=== PATIENT | male | born 1960 | race Caucasian/White ===

== ENCOUNTER → 2021-06-01 15:26 | Outpatient (CLI) | payer BC, SELFPAY ==
--- NOTE | ~2021-06-01 | MR_ITS ---
EXAMINATION: MR lumbar spine wo con DATE: 06/01/2021 16:41 INDICATION: Lumbar radiculopathy. TECHNIQUE: Magnetic resonance imaging (MRI) of the lumbar spine was performed without intravenous con trast. Sequences included sagittal T2-weighted FSE, sagittal T2-weighted FS FSE, sagittal T1-weighted FSE, and axial T2-weighted FSE. COMPARISON: Lumbar spine MRI 06/20/2018 FINDINGS: There is 11 degrees levoscoliosis of lumbar spine. There is 3 mm retrolisthesis of L2 on L3 and 3 mm anterolisthesis of L4 on L5. Vertebral body heights are normal. There is moderately decreas ed disc height at L2-L3 and mildly decreased disc height at L4-L5 with endplate remodeling. The dista l spinal cord signal intensity is normal. The conus medullaris is at L1. The following disc levels ar e specifically discussed: L1-L2: The disc is bulging. There is moderate bilateral facet joint osteoarthritis. There is mild lef t neural foraminal stenosis. There is mild central canal stenosis. L2-L3: The disc is bulging and has an annular fissure. There is mild bilateral facet joint osteoarthr itis. There is moderate right and mild left neural foraminal stenosis. There is mild central canal st enosis. L3-L4: The disc is bulging. There is moderate bilateral facet joint osteoarthritis. There is mild myron ateral neural foraminal stenosis. There is no central canal stenosis. L4-L5: The disc is bulging with superimposed left central extrusion. There is severe bilateral facet joint osteoarthritis. There is mild bilateral neural foraminal stenosis. There is mild central canal stenosis. L5-S1: The disc is bulging and has an annular fissure. There is severe bilateral facet joint osteoart hritis. There is mild bilateral neural foraminal stenosis. There is mild central canal stenosis. IMPRESSION: 1. Moderate lumbar spondylosis, worsened from 06/20/2018. 2. Lumbar levoscoliosis. Reviewed, dictated and finalized at location A.
== END ==
PROVIDERS: PCP Internal Medicine; Visit Provider Nurse Practitioner Family
DX: M47.26 Other spondylosis with radiculopathy, lumbar region (principal)
CPT/HCPCS: 72148

== ENCOUNTER → 2021-07-03 08:42 | Outpatient (CLI) | payer BC, SELFPAY ==
--- NOTE | ~2021-07-03 | US_ITS ---
EXAMINATION: US retroperitoneal comp DATE: 07/03/2021 09:03 INDICATION: Chronic kidney disease stage III. TECHNIQUE: Multiple ultrasound grayscale images of the kidneys were obtained. COMPARISON: None. FINDINGS: The right kidney measures 10.1 x 7.0 x 6.2 cm. The left kidney measures 11.9 x 6.7 x 5.4 cm. The kidn eys demonstrate normal parenchymal echogenicity. There is no hydronephrosis. The bladder is normal. IMPRESSION: 1. Normal kidneys. No hydronephrosis. Reviewed, dictated and finalized at location A.
== END ==
PROVIDERS: Visit Provider Specialist
DX: N18.31 Chronic kidney disease, stage 3a (principal)
CPT/HCPCS: 76770

== ENCOUNTER → 2021-07-28 08:52 | Outpatient (CLI) | payer BC, SELFPAY ==
--- NOTE | ~2021-07-28 | XR_ITS ---
XR knee LT 2V DATE: 07/28/2021 09:04 INDICATION: Bilateral knee pain TECHNIQUE: Standing AP and lateral views COMPARISON: None FINDINGS: Mild to moderate suprapatellar knee joint effusion is suggested. There is tricompartment osteoarthritis, most severe at the medial and patellofemoral compartments wit h prominent joint space loss at each of these compartments. There is prominent periarticular spurring at all 3 compartments. No fracture or dislocation, periosteal reaction or bone destruction, radiopaque intra-articular loos e body or chondrocalcinosis is evident. IMPRESSION: Tricompartment osteoarthritis Mild to moderate suprapatellar knee joint effusion Reviewed, dictated and finalized at location B.
--- NOTE | ~2021-07-28 | XR_ITS ---
XR knee RT 2V DATE: 07/28/2021 09:04 INDICATION: Bilateral knee pain TECHNIQUE: Standing AP and lateral views of right knee COMPARISON: None FINDINGS: There is tricompartment osteoarthritis, most pronounced at the medial compartment with paula re loss of medial joint space. There is periarticular spurring at all 3 compartments. No fracture, dislocation, periosteal reaction or bone destruction, radiopaque intra-articular loose b linda or chondrocalcinosis. Small suprapatellar knee joint effusion is suggested. IMPRESSION: Tricompartment osteoarthritis, most pronounced at the medial compartment Possible small suprapatellar knee joint effusion Reviewed, dictated and finalized at location B. IMPRESSION: Tricompartment osteoarthritis, most pronounced at the medial compar tment Possible small suprapatellar knee joint effusion
== END ==
PROVIDERS: PCP Internal Medicine; Visit Provider Nurse Practitioner Family
DX: M17.0 Bilateral primary osteoarthritis of knee (principal); M25.461 Effusion, right knee; M25.462 Effusion, left knee
CPT/HCPCS: 73560

== ENCOUNTER → 2021-08-24 08:31 | Outpatient (CLI) | payer BC, SELFPAY ==
--- NOTE | ~2021-08-24 | XR_ITS ---
EXAMINATION: XR hip RT min 2V DATE: 08/24/2021 09:12 INDICATION: Right hip pain. TECHNIQUE: 2 views of right hip were obtained. COMPARISON: None. FINDINGS: Bone alignment is normal. No fracture. There is mild right hip osteoarthritis. IMPRESSION: 1. Mild right hip osteoarthritis. Reviewed, dictated and finalized at location A.
== END ==
PROVIDERS: PCP Internal Medicine; Visit Provider Nurse Practitioner Family
DX: M16.11 Unilateral primary osteoarthritis, right hip (principal)
CPT/HCPCS: 73502

== ENCOUNTER 2024-03-18 01:11 | Day surgery (SDC) | payer BC, SELFPAY ==
[2024-02-29 13:26] VITALS: BMI 47.7
[2024-03-18 08:42] VITALS: BP 146/65; PULSE 97; RESP 18; TEMP 36.1; O2SAT 97
[2024-03-18] MEDS: LACTATED RINGERS 1,000 ML 150 ML IV CONT (08:54)
[2024-03-18 08:59] LABS: Glucose Point of Care 126 mg/dl (65-105)
--- NOTE | 2024-03-18 09:09 | P.PNAN_ITS ---
Anes - Initial Pre Proc Eval Procedure: Operation Date: 03/18/24 10:00 Proposed Procedures p Screening Colonoscopy - Ray Brenner MD Date/Time: 03/18/24 09:09 Surgeon: Ray Brenner MD Pre Op Diagnosis: hx of colon polyps Patient Data Age: 64 Gender: M Height: 1.85 m Weight: 163.1 kg Last Vital Signs Temp 97 F L 03/18/24 08:42 Pulse 97 03/18/24 08:42 Resp 18 03/18/24 08:42 BP 146/65 H 03/18/24 08:42 Pulse Ox 97 03/18/24 08:42 O2 Del Method Room Air 03/18/24 08:42 Allergies Allergy/AdvReac Type Severity Reaction Status Date / Time No Known Allergies Allergy Verified 03/18/24 08:41 Home Medications Medication Instructions Recorded Confirmed Type brimonidine 0.2 % eye drops 1 drp EACH EYE DAILY 02/29/24 02/29/24 History calcitriol 0.25 mcg capsule 0.25 mcg PO DAILY 02/29/24 02/29/24 History empagliflozin 10 mg tablet 10 mg PO DAILY 02/29/24 02/29/24 History (Jardiance) ergocalciferol (vitamin D2) 1,250 50,000 unit PO 02/29/24 History mcg (50,000 unit) capsule furosemide 40 mg tablet 40 mg PO PRN PRN swelling 02/29/24 02/29/24 History gabapentin 100 mg capsule 100 mg PO TID 02/29/24 02/29/24 History glipizide 10 mg tablet 5 mg PO DAILY 02/29/24 02/29/24 History insulin degludec 200 unit/mL (3 20 unit subcut DAILY 02/29/24 02/29/24 History mL) subcutaneous pen (Tresiba FlexTouch U-200 insulin) losartan 100 mg tablet 100 mg PO DAILY 02/29/24 02/29/24 History rosuvastatin 20 mg tablet 20 mg PO DAILY 02/29/24 02/29/24 History testosterone See Rx Instructions .Route .COMPLEX 02/29/24 02/29/24 History tirzepatide 2.5 mg/0.5 mL 2.5 mg subcut WEEKLY 05/02/24 05/02/24 History subcutaneous pen injector (Mounjaro) Laboratory Tests 03/18/24 08:53 POC Capillary Glucose 126 H mg/dl (65-105) Patient hx anesthesia problems: none Family hx anesthesia problems: none Results Review: All pre-operative results and documents have been reviewed as part of the pre- operative evaluation. [facility] Social History Social History Smoking status: Never smoker Substance use type: does not use Living arrangements: other Additional living arrangements comments: with lenny Drew Final PreProcedure Day of Procedure 03/18/24 09:09 Patient weight: morbidly obese Heart: regular rate and rhythm Lungs: clear to auscultation Airway: Mallampati scale class II Neurological: alert and oriented Last oral intake: >/= 8 hours ASA classification: III Emergent: no Anesthetic plan: proceed Anesthesia type and monitoring: general GIVS and standard monitoring Results Review: All pre-operative results and documents have been reviewed as part of the pre- operative evaluation. Informed Consent: The patient's anesthetic plan and its attendant risks and benefits were discussed with the patient/family/POA. Questions were solicited and answers provided to the satisfaction of the patient/family/POA.
--- NOTE | 2024-03-18 09:39 | PM.HPGS ---
History of Present Illness History of Present Illness Consent: Risks, benefits, and alternatives have been discussed and questions answered. Patient agrees to proceed with procedure. Chief complaint: hx of colon polyps Narrative: Reza Ny is a 64 year old male with colon polyp in 2019 Review of Systems Review of Systems: All systems reviewed & are unremarkable except as noted in HPI and below PMFSH Past Medical History Medical History (Updated 03/18/24 @ 09:39 by Ray Brenner MD) Adenomatous colon polyp Social History Social History Smoking status: Never smoker Substance use type: does not use Living arrangements: other Additional living arrangements comments: with sp Meds Home Medications and Allergies Home Medications Medication Instructions Recorded Confirmed Type brimonidine 0.2 % eye drops 1 drp EACH EYE DAILY 02/29/24 02/29/24 History calcitriol 0.25 mcg capsule 0.25 mcg PO DAILY 02/29/24 02/29/24 History empagliflozin 10 mg tablet 10 mg PO DAILY 02/29/24 02/29/24 History (Jardiance) ergocalciferol (vitamin D2) 1,250 50,000 unit PO 02/29/24 History mcg (50,000 unit) capsule furosemide 40 mg tablet 40 mg PO PRN PRN swelling 02/29/24 02/29/24 History gabapentin 100 mg capsule 100 mg PO TID 02/29/24 02/29/24 History glipizide 10 mg tablet 5 mg PO DAILY 02/29/24 02/29/24 History insulin degludec 200 unit/mL (3 20 unit subcut DAILY 02/29/24 02/29/24 History mL) subcutaneous pen (Tresiba FlexTouch U-200 insulin) losartan 100 mg tablet 100 mg PO DAILY 02/29/24 02/29/24 History rosuvastatin 20 mg tablet 20 mg PO DAILY 02/29/24 02/29/24 History testosterone See Rx Instructions .Route .COMPLEX 02/29/24 02/29/24 History tirzepatide 2.5 mg/0.5 mL 2.5 mg subcut WEEKLY 02/29/24 02/29/24 History subcutaneous pen injector (Cesarunmarlaro) Allergies Allergy/AdvReac Type Severity Reaction Status Date / Time No Known Allergies Allergy Verified 03/18/24 08:41 Vital Signs Vital Signs - 24 hr 05/20/24 08:42 Temperature 97 F L Pulse Rate 97 Respiratory Rate 18 Blood Pressure 146/65 H Pulse Oximetry 97 Oxygen Delivery Room Air Exam Const: General: comfortable and no acute distress HENMT: Face/Nose/Sinus: Normal nares present Eyes: General: appearance normal, both eyes and all related structures Neck: Neck: no JVD Resp: Auscultation: clear to auscultation bilaterally Cardio: Rate: regular rate Rhythm: regular rhythm GI: Inspection: non-distended GI Palp: Yes Soft to palpation Skin: General skin exam: normal color Neuro: General: gait normal Speech: normal speech Extrem: General: normal to inspection Psych: Mental Status: mental status grossly normal Assessment and Plan Assessment and plan (1) Adenomatous colon polyp: Code(s): D12.6 - Benign neoplasm of colon, unspecified Status: Acute Assessment and Plan: colonoscopy
[2024-03-18 09:55] VITALS: BP 112/55; PULSE 81; RESP 21; O2SAT 96
[2024-03-18 10:04] LABS: Glucose Point of Care 109 mg/dl (65-105)
[2024-03-18 10:05] VITALS: BP 123/67; PULSE 80; RESP 16; O2SAT 100
[2024-03-18 10:15] VITALS: BP 124/71; PULSE 83; RESP 16; O2SAT 100
== END 2024-03-18 10:30 | disposition home or self-care (01) ==
PROVIDERS: PCP Internal Medicine; Visit Provider Internal Medicine Gastroenterology
PROC: 0DJD8ZZ Inspection of Lower Intestinal Tract, Via Natural or Artificial Opening Endoscopic (ICD-10-PCS; CPT 45378; principal; 2024-03-18 10:00)
DX: Z12.11 Encounter for screening for malignant neoplasm of colon (principal); D12.4 Benign neoplasm of descending colon; K64.8 Other hemorrhoids; E66.01 Morbid (severe) obesity due to excess calories; Z68.42 Body mass index [BMI] 45.0-49.9, adult; Z79.84 Long term (current) use of oral hypoglycemic drugs; Z79.4 Long term (current) use of insulin; Z79.85 Long-term (current) use of injectable non-insulin antidiabetic drugs
CPT/HCPCS: 45385; 82948; 88305; J2704; J7120

== ENCOUNTER 2025-07-07 13:02 | Outpatient (CLI) | payer BC, SELFPAY ==
--- OUTSIDE RECORDS SUMMARY | 2010-09-17 10:00 | XMS_ITS | Continuity of Care Document ---
Author Organization [facility] Address [address] [place] [address] Phone Care Team Providers Care Security Assistant Name Role Phone Messi Franklin Unavailable Unavailable Procedures Procedure Date Post-op Follow-up Visit Eye Exam & Treatment Ophthalmoscopy, Subsequent Ophthalmoscopy, Subsequent Optic Nerve Topography Optic Nerve Topography Post-op Follow-up Visit Remove Cataract, Insert Lens Injection Eye Drug Kenalog/Triamcinolone Acetonide Inj Eye Exam & Treatment Injection Eye Drug Kenalog/Triamcinolone Acetonide Inj Ophthalmoscopy, Subsequent Ophthalmoscopy, Subsequent Optic Nerve Topography Optic Nerve Topography Office/outpatient Visit, Est Echo Exam Of Eye-Professional Oct--201 0 Eye Exam & Treatment Ophthalmoscopy, Subsequent Ophthalmoscopy, Subsequent Optic Nerve Topography Optic Nerve Topography Eye Exam & Treatment Ophthalmoscopy, Subsequent Ophthalmoscopy, Subsequent Optic Nerve Topography Optic Nerve Topography Injection Eye Drug Kenalog/Triamcinolone Acetonide Inj Eye Exam & Treatment Ophthalmoscopy, Subsequent Ophthalmoscopy, Subsequent Optic Nerve Topography Optic Nerve Topography Injection Eye Drug Kenalog/Triamcinolone Acetonide Inj Post-op Follow-up Visit Eye Exam & Treatment Ophthalmoscopy, Subsequent Ophthalmoscopy, Subsequent Optic Nerve Topography Optic Nerve Topography Injection Eye Drug Kenalog/Triamcinolone Acetonide Inj Post-op Follow-up Visit Post-op Follow-up Visit Remove Cataract, Insert Lens Injection Eye Drug Kenalog/Triamcinolone Acetonide Inj Echo Exam Of Eye Office/outpatient Visit, Est Eye Exam & Treatment Ophthalmoscopy, Subsequent Ophthalmoscopy, Subsequent Optic Nerve Topography Optic Nerve Topography Injection Eye Drug Kenalog/Triamcinolone Acetonide Inj Ophthalmoscopy, Subsequent Eye Exam & Treatment Ophthalmoscopy, Subsequent Ophthalmoscopy, Subsequent Optic Nerve Topography Optic Nerve Topography Injection Eye Drug Kenalog/Triamcinolone Acetonide Inj Eye Exam & Treatment Ophthalmoscopy, Subsequent Ophthalmoscopy, Subsequent Optic Nerve Topography Optic Nerve Topography Eye Exam & Treatment Ophthalmoscopy, Subsequent Ophthalmoscopy, Subsequent Optic Nerve Topography Injection Eye Drug Kenalog/Triamcinolone Acetonide Inj Eye Exam Established Pt Ophthalmoscopy, Subsequent Eye Exam & Treatment Ophthalmoscopy, Subsequent Eye Exam & Treatment Ophthalmoscopy, Subsequent Ophthalmoscopy, Subsequent Optic Nerve Topography Optic Nerve Topography Injection Eye Drug Kenalog/Triamcinolone Acetonide Inj Eye Exam & Treatment Ophthalmoscopy, Subsequent Ophthalmoscopy, Subsequent Optic Nerve Topography Optic Nerve Topography Injection Eye Drug Kenalog/Triamcinolone Acetonide Inj Eye Exam & Treatment Injection Eye Drug Kenalog/Triamcinolone Acetonide Inj Ophthalmoscopy, Subsequent Ophthalmoscopy, Subsequent Optic Nerve Topography Optic Nerve Topography Eye Exam Established Pt Ophthalmoscopy, Subsequent Ophthalmoscopy, Subsequent Eye Exam Established Pt Ophthalmoscopy, Subsequent Ophthalmoscopy, Subsequent Eye Exam & Treatment Ophthalmoscopy, Subsequent Ophthalmoscopy, Subsequent Optic Nerve Topography Optic Nerve Topography Injection Eye Drug Bevacizumab (Avastin) Eye Exam & Treatment Ophthalmoscopy, Subsequent Ophthalmoscopy, Subsequent Injection Eye Drug Kenalog/Triamcinolone Acetonide Inj Miscellaneous Vision Service - Supplies Sales Tax Progressive Lens, Plastic Frames Deluxe UV Coat Tax - Medical Eye Exam Established Pt Ophthalmoscopy, Subsequent Ophthalmoscopy, Subsequent Optic Nerve Topography Optic Nerve Topography No Charge Glasses Check Eye Exam Established Pt Ophthalmoscopy, Subsequent Ophthalmoscopy, Subsequent Treatment Of Retinal Lesion Treatment Of Retinal Lesion Injection Eye Drug Kenalog/Triamcinolone Acetonide Inj Office Consultation Ophthalmoscopy Ophthalmoscopy Fluorescein Angiography Fluorescein Angiography Injection Eye Drug Kenalog/Triamcinolone Acetonide Inj Eye Exam, New Patient Advance Directives Directive Yes / No Effective Date File Name No Information Encounters Encounter Description Practice Location Reason(s) For Visit Diagnoses Date Provider Providers Copied on Encounter [facility], [address] [place] [address] [address], [place], [place], [address], tel:[phone] [facility] No Information 0 Rigoberto Swenson. [address] [facility] , [address], [place], [place], [facility], . tel:[phone] Referring Provider: Gabriele Harmon, [address] [place] [address], [facility]. tel:[phone] [facility], [address] [place] [address] [address], [place], [place], [address], tel:[phone] SEC [facility] No Information 0 Kenneth Suazo. [address] [place] [address], [address], [place]. tel:[phone] Referring Provider: Gabriele Harmon, [address] [place], [facility]. tel:[phone] [facility], [address] [place] [address] [address], [place], [place], [address], tel:[phone] SEC [facility] No Information 0 Rigoberto Swenson. [address] [facility] , [address], [place], [facility], [place]. tel:[phone] Referring Provider: Gabriele Harmon, [address] [place] [facility]. tel:[phone] [facility], [address], [place], [place], [address], [place] tel:[phone] [facility] No Information Nov-0 4-201 0 Rigoberto Swenson. [address] [facility] , [address], [place], [address], [place]. tel:[phone] Referring Provider: Gabriele Harmon, [address] [place] [facility]. tel:[phone] [facility], [address] [place] [address] [address], [place], [place], [address], [place] tel:[phone] [facility] No Information Oct-2 8-201 0 Kenneth Suazo. [address] [place] [address], [facility], [place]. tel:[phone] Referring Provider: Messi De Los Santos, Abigail [facility] [address], [place], [facility]. tel:[phone] [facility], [address], [place], [place], [address], [place] tel:[phone] [facility] No Information Oct-2 1-201 0 Kenneth Suazo. [address] [place], [address], [place]. tel:[phone] Referring Provider: Gabriele Harmon, [address] [place], [address]. tel:[phone] Office/outpati ent Visit, [facility], [address], [place], [place], [address], [place] tel:[phone] [facility] No Information Oct-1 1-201 0 [facility]enson. [facility] , [address], [place], [facility], [place]. tel:[phone] Referring Provider: Abigail Sanchez [facility] [address], [place], [facility]. tel:[phone] [facility], [address], [place], [place], [address], [place] tel:[phone] [facility] No Information 0 Kenneth Suazo. [address] [place], [address], [place]. tel:[phone] Referring Provider: Gabriele Harmon, [address] [place], [address]. tel:[phone] [facility], [address], [place], [place], [address], [place] tel:[phone] [facility] No Information 0 Kenneth Suazo. [address] [place], [address], [place]. tel:[phone] Referring Provider: Gabriele Harmon, [address] [place], [address]. tel:[phone] [facility], [address], [place], [place], [address], [place] tel:[phone] SEC [facility] No Information 0 Kenneth Suazo. [address] [place], [address], [place]. tel:[phone] Referring Provider: Gabriele Harmon, [address] [place], [address]. tel:[phone] [facility], [address], [place], [place], [address], [place] tel:[phone] [facility] No Information 0 Kenneth Suazo. [address] [place], [address], [place]. tel:[phone] [facility], [address], [place], [place], [address], [place] tel:[phone] [facility] [place] No Information 0 [place]. [address], [place], [address], [place]. tel:[phone] [facility], [address], [place], [place], [address], [place] tel:[phone] [facility] No Information 0 Kenneth Suazo. [address] [place], [address], [place]. tel:[phone] Referring Provider: Gabriele Harmon, [address] [place] [facility]. tel:[phone] [facility], [address] [place] [address] [address], [place], [place], [address], [place] tel:[phone] [facility] No Information 0 [place]. [address] [facility] [address], [address], [place]. tel:[phone] Referring Provider: Gabriele Harmon, [address] [place] [address], [address]. tel:[phone] [facility], [address] [place] [address] [address], [place], [place], [address], [place] tel:[phone] [facility] No Information 0 [place]. [address] [facility] [address], [address], [place]. tel:[phone] Referring Provider: Gabriele Harmon, [address] [place], [address]. tel:[phone] [facility], [address], [place], [place], [address], [place] tel:[phone] [facility] No Information - 0 [place]. [address], [place], [address], [place]. tel:[phone] Referring Provider: Gabriele Harmon, [address] [place], [address]. tel:[phone] [facility], [address], [place], [place], [address], [place] tel:[phone] [facility] No Information Ernesto-1 4-201 0 Kenneth Suazo. [address] [place], [address], [place]. tel:[phone] Referring Provider: Parish medel, [address] [place], [place] [address]ate [place] [address], [place], [address]. tel:[phone] [facility], [address], [place], [place], [address], [place] tel:[phone] SEC [facility] No Information Ernesto-0 2-201 0 [place]. [address] [place], [place] [address], [address], [place]. tel:[phone] Referring Provider: Parish medel, [address] [place], [place] [address]ate [place] [address], [place], [address]. tel:[phone] Office/outpati ent Visit, [facility], [address], [place], [place], [address], [place] tel:[phone] SEC [facility] No Information Ernesto-0 1-201 0 [place]. [facility] [address], [place], [address], [place]. tel:[phone] Referring Provider: Gabriele Harmon, [address] [place], [address]. tel:[phone] [facility], [address], [place], [place], [address], [place] tel:[phone] [facility] No Information May-2 4-201 0 Kenneth Suazo. [address] [place], [address], [place]. tel:[phone] Referring Provider: Gabriele Harmon, [address] [place], [address]. tel:[phone] [facility], [address], [place], [place], [address], [place] tel:[phone] [facility] No Information May-1 0-201 0 Kenneth Suazo. [address] [place], [address], [place]. tel:[phone] Referring Provider: Gabriele Harmon, [address] [place], [address]. tel:[phone] [facility], [address], [place], [place], [address], [place] tel:[phone] [facility] No Information Apr-2 6-201 0 Kenneth Suazo. [address] [place], [address], [place]. tel:[phone] Referring Provider: Gabriele Harmon, [address] [place], [address]. tel:[phone] [facility], [address], [place], [place], [address], [place] tel:[phone] [facility] No Information Mar-2 9-201 0 Kenneth Suazo. [address] [place], [address], [place]. tel:[phone] Referring Provider: Gabriele Harmon, [address] [place], [address]. tel:[phone] [facility], [address], [place], [place], [address], [place] tel:[phone] [facility] No Information Mar-1 1-201 0 Kenneth Suazo. [address] [place], [address], [place]. tel:[phone] Referring Provider: Gabriele Harmon, [address] [place], [address]. tel:[phone] [facility], [address], [place], [place], [address], [place] tel:[phone] [facility] No Information 0 Kenneth Suazo. [address] [place], [address], [place]. tel:[phone] [facility], [address], [place], [place], [address], [place] tel:[phone] [facility] No Information 0 Kenneth Suazo. [address] [place], [address], [place]. tel:[phone] Referring Provider: Gabriele Harmon, [address] [place], [address]. tel:[phone] [facility], [address], [place], [place], [address], [place] tel:[phone] [facility] No Information 0 Kenneth Suazo. [address] [place], [address], [place]. tel:[phone] Referring Provider: Gabriele Harmon, [address] [place], [address]. tel:[phone] [facility], [address], [place], [place], [address], [place] tel:[phone] [facility] No Information 0 Kenneth Suazo. [address] [place], [address], [place]. tel:[phone] Referring Provider: Gabriele Harmon, [address] [place], [address]. tel:[phone] [facility], [address], [place], [place], [address], [place] tel:[phone] [facility] No Information Dec-1 0-200 9 Kenneth Gabriele. [address] [place], [address], [place]. tel:[phone] Referring Provider: Gabriele Harmon, [address] [place], [address]. tel:[phone] [facility], [address], [place], [place], [address], [place] tel:[phone] [facility] No Information Dec-0 3-200 9 Kenneth Suazo. [address] [place], [address], [place]. tel:[phone] Referring Provider: Gabriele Harmon, [address] [place], [address]. tel:[phone] [facility], [address], [place], [place], [address], [place] tel:[phone] [facility] No Information Oct-1 5-200 9 Kenneth Suazo. [address] [place], [address], [place]. tel:[phone] Referring Provider: Gabriele Harmon, [address] [place], [address]. tel:[phone] [facility], [address], [place], [place], [address], [place] tel:[phone] [facility] No Information Aug-0 6-200 9 Kenneth Suazo. [address] [place], [address], [place]. tel:[phone] Referring Provider: Gabriele Harmon, [address] [place], [address]. tel:[phone] [facility], [address], [place], [place], [address], [place] tel:[phone] [facility] No Information Apr-0 9-200 9 Kenneth Suazo. [address] [place], [address], [place]. tel:[phone] Referring Provider: Gabriele Harmon, [address] [place], [address]. tel:[phone] [facility], [address], [place], [place], [address], [place] tel:[phone] [facility] No Information Mar-2 5-200 9 Kenneth Suazo. [address] [place], [address], [place]. tel:[phone] Referring Provider: Gabriele Harmon, [address] [place], [address]. tel:[phone] [facility], [address], [place], [place], [address], [place] tel:[phone] [facility] No Information Mar-1 1200 9 Kenneth Suazo. [address] [place], [address], [place]. tel:[phone] [facility], [address], [place], [place], [address], [place] tel:[phone] SEC [facility] No Information Mar-0 2-200 9 [facility]. [address] [facility], [address], [place], [place], [address], [place]. tel:[phone] Referring Provider: Parish medel, [address] [place] [address] [address], [place], [address]. tel:[phone] sulting Provider: Hector Muse, [address] [place] [address], [address]. tel:[phone] [facility], [address], [place], [place], [address], [place] tel:[phone] [facility] [place] No Information Dec-1 3-200 9 [employer] [facility]. [address] [facility], [address], [place], [place], [address], [place]. tel:[phone] Referring Provider: Favio De Los Santos, [facility] [address], [place], [address]. tel:[phone] sulting Provider: Hector Muse, [facility], [place], [address]. tel:[phone] [facility], [address], [place], [place], [address], [place] tel:[phone] [facility] No Information Corey-0 8-200 9 Kenneth Suazo. [address] [place], [address], [place]. tel:[phone] Referring Provider: Gabriele Harmon, [address] [place], [address]. tel:[phone] [facility], [address], [place], [place], [address], [place] tel:[phone] [facility] [place] No Information Dec-1 7-200 8 Lewis OD Favio. [address] [place], [place] [address], [place], [address], [place]. tel:[phone] [facility], [address], [place], [place], [address], [place] tel:[phone] [facility] No Information Nov-2 0-200 8 Kenneth Suazo. [address] [place], [address], [place]. tel:[phone] [facility], [address], [place], [place], [address], [place] tel:[phone] [facility] No Information Nov-1 0-200 8 Kenneth Suazo. [address] [place] [facility], . tel:[phone] [facility], [address] [place] [address] [address], [place], [place], [address], tel:[phone] [facility] No Information Nov-0 3-200 8 Kenneth Suazo. [address] [place] [facility], [place]. tel:[phone] [facility], [address] [place] [address] [address], [place], [place], [address], tel:[phone] [facility] No Information Oct-2 7-200 8 Kenneth Suazo. [address] [place] [facility], [place]. tel:[phone] Office Consultation [facility], [address] [place] [address] [address], [place], [place], [address], [place] tel:[phone] [facility] No Information Oct-2 3-200 8 Kenneth Suazo. [address] [place] [facility], [place]. tel:[phone] Referring Provider: Parish medel, [address] [place], [place] [address] [place] [address], [place], [facility]. tel:[phone] [facility], [address] [place] [address] [address], [place], [place], [address], [place] tel:[phone] [facility] No Information Oct-1 7-200 8 Zachery Lugo. [facility] [place] [address], [place], [facility], [place]. tel:[phone] Family History Family Member Type Diagnosis Age At Onset No Information Payers Payer name Insurance type Covered green party ID Authoriza tion(s) No Information Social History Type Description Quantity Date Captured Comments Sex Male Smoking Status No Information Chief Complaint And Reason For Visit No Information Reason For Referral Reason For Referral No Information History Of Present Illness Encounter Date Complaint History Of Prese nt Illness No Information Functional Status Date Functional Assessmen t No Information Instructions Date Instruction Additional Infor mation No Information Assessments Type Assessment Date No Information Patient Care Teams Name Effective Dates (start - stop) Status Members No Information
--- OUTSIDE RECORDS SUMMARY | 2024-03-22 07:15 | XMS_ITS ---
Author Organization [facility] Office Address [address] [facility] [address] [facility] [address] [place] [address] Care Team Providers Care Cut Off Man Name Role Phone Jorge A Guevara Unavailable [phone] Medications Medication SIG (Take, Route, Frequency, Duration) Notes Start Date End Date Status Ergocalciferol 1.25 MG (48979 UT) 1 capsule Orally Once a week; Duration: 90 day(s) Active Losartan Potassium 100 MG 1 tablet Orall y Once a day; Duration: 90 10/06/2023 Active Losartan Potassium 50 MG TAKE 1 TABLET B Y MOUTH EVERY DAY; Duration: 90 Active Encounters Encounter Location Date Provider Diagnosis [place] [facility] [address] [facility] [address] [place] [address] 03/22/2024 Jorge A Guevara Chronic kidney disea se, stage 2 (mild) N18.2 ; Essential (primary) hypertension I10 ; Type 2 diabetes mellitus with hyperglycemia E11.65 ; Renal osteodystrophy N25.0 and Secondary hyperparathyroidism, not elsewhere classified E21.1 Assessments Encounter Date Diagnosis (ICD Code) Assessment Notes Treatment Notes Treatment Clinical Notes Section Notes 03/22/2024 Chronic kidney disease, stage 2 (mild) (ICD-10 - N18.2) 03/22/2024 Essential (primary) hypertension (ICD-10 - I10) 03/22/2024 Type 2 diabetes mellitus with hyperglycemia (ICD-10 - E11.65) 03/22/2024 Renal osteodystrophy (ICD-10 - N25.0) 03/22/2024 Secondary hyperparathyroidism , not elsewhere classified (ICD-10 - E21.1) Plan Of Treatment Next Appt Details Provider Name:Jorge A Guevara , 07/25/2025 12:30:00 PM, 20[address] [facility], [facility] [address], [place], [address], Progress Notes * AIRAM SUNDOB: 2 (65 yo M)Acc No.[id number]:03/22/2024 Progress Notes Patient: AIRAM GREEN Provider: Ana Maria SO MD, Zenaida.Filiberto.C.P, F.A.S.N. :1960 A ge:64 Y S ex:Male Date:03/22/2024 Address:[address] [place] [address] Subjective: * Chief Complaints: * * Medical History: * Medications: T aking Losartan Potassium 100 MG Tablet 1 tablet Orally Once a day , Taking Losartan Potassium 50 MG Tablet TAKE 1 TABLET BY MOUTH EVERY DAY , Taking Ergocalciferol 1.25 MG (46881 UT) Capsule 1 capsule Orally Once a week Objective: * Vitals: Assessment: * Assessment: 1. C hronic kidney disease, stage 2 (mild) - N18.2 (Primary) 2 . E ssential (primary) hypertension - I10 3 . T ype 2 diabetes mellitus with hyperglycemia - E11.65 4 . R enal osteodystrophy - N25.0 5 . S econdary hyperparathyroidism, not elsewhere classified - E21.1 Plan: * Treatment: * Billing Information: * Visit Code: 54810 Office Visit, Est Pt., Level 4. * Procedure Codes: * Electronic signature of Delma Guevara MD on 07/07/2025 at 01:09 PM CDT Sign off status: Pending * Provider: Ana Maria SO MD, F.A.C.P, F.A.S.N. Date: 0 03/22/2024 Generated for Printing/Faxing/eTransmitting on: 0 07/07/2025 01:09 PM CDT
--- OUTSIDE RECORDS SUMMARY | 2024-07-12 07:15 | XMS_ITS ---
Author Organization [facility] Office Address [address] [place] [address] Care Team Providers Care Christmas Bell Ringer Name Role Phone Jorge A Guevara Unavailable [phone] Medications Medication SIG (Take, Route, Frequency, Duration) Notes Start Date End Date Status Losartan Potassium 50 MG TAKE 1 TABLET B Y MOUTH EVERY DAY; Duration: 90 Active Ergocalciferol 1.25 MG (79016 UT) 1 capsule Orally Once a week; Duration: 90 day(s) Active Losartan Potassium 100 MG TAKE 1 TABLET BY MOUTH EVERY DAY; Duration: 90 Active Encounters Encounter Location Date Provider Diagnosis [place] [facility] [address] [facility] 15 [place] [address] 07/12/2024 Jorge A Guevara Chronic kidney disea se, stage 2 (mild) N18.2 ; Essential (primary) hypertension I10 ; Type 2 diabetes mellitus with hyperglycemia E11.65 ; Renal osteodystrophy N25.0 and Secondary hyperparathyroidism, not elsewhere classified E21.1 Assessments Encounter Date Diagnosis (ICD Code) Assessment Notes Treatment Notes Treatment Clinical Notes Section Notes 07/12/2024 Chronic kidney disease, stage 2 (mild) (ICD-10 - N18.2) 07/12/2024 Essential (primary) hypertension (ICD-10 - I10) 07/12/2024 Type 2 diabetes mellitus with hyperglycemia (ICD-10 - E11.65) 07/12/2024 Renal osteodystrophy (ICD-10 - N25.0) 07/12/2024 Secondary hyperparathyroidism , not elsewhere classified (ICD-10 - E21.1) Plan Of Treatment Next Appt Details Provider Name:Jorge A Guevara , 07/25/2025 12:30:00 PM, [address] [facility] 15, [place], [address], Progress Notes * CHRISTINE SUNB: 2 (65 yo M)Acc No.[id number]:07/12/2024 Progress Notes Patient: AIRAM GREEN Provider: Ana Maria SO MD, F.Filiberto.C.P, F.A.S.N. :1960 A ge:64 Y S ex:Male Date:07/12/2024 Address:[address] [place] [address] Subjective: * Chief Complaints: * * Medical History: * Medications: T aking Losartan Potassium 50 MG Tablet TAKE 1 TABLET BY MOUTH EVERY DAY , Taking Ergocalciferol 1.25 MG (90988 UT) Capsule 1 capsule Orally Once a week , Taking Losartan Potassium 100 MG Tablet TAKE 1 TABLET BY MOUTH EVERY DAY Objective: * Vitals: Assessment: * Assessment: 1. C hronic kidney disease, stage 2 (mild) - N18.2 (Primary) 2 . E ssential (primary) hypertension - I10 3 . T ype 2 diabetes mellitus with hyperglycemia - E11.65 4 . R enal osteodystrophy - N25.0 5 . S econdary hyperparathyroidism, not elsewhere classified - E21.1 Plan: * Treatment: * Billing Information: * Visit Code: 11482 Office Visit, Est Pt., Level 4. * Procedure Codes: * Electronic signature of Delma Guevara MD on 07/07/2025 at 01:10 PM CDT Sign off status: Pending * Provider: Ana Maria SO MD, F.A.C.P, F.A.S.N. Date: 07/12/2024 Generated for Printing/Faxing/eTransmitting on: 07/07/2025 01:10 PM CDT
--- OUTSIDE RECORDS SUMMARY | 2024-10-04 07:15 | XMS_ITS ---
Author Organization [facility] Office Address [address] [facility] 61 [facility] [address] [place] [address] Care Team Providers Care Relay Engineer Name Role Phone Jorge A Guevara Unavailable [phone] Medications Medication SIG (Take, Route, Frequency, Duration) Notes Start Date End Date Status Losartan Potassium 50 MG TAKE 1 TABLET B Y MOUTH EVERY DAY; Duration: 90 Active Losartan Potassium 100 MG TAKE 1 TABLET BY MOUTH EVERY DAY; Duration: 90 Active Ergocalciferol 1.25 MG (00570 UT) 1 capsule Orally Once a week; Duration: 90 day(s) Active Encounters Encounter Location Date Provider Diagnosis [place] [facility] 2043 [facility] 15 [place] [address] 10/04/2024 Jorge A Guevara Chronic kidney disea se, stage 3 unspecified N18.30 ; Essential (primary) hypertension I10 ; Type 2 diabetes mellitus with hyperglycemia E11.65 ; Renal osteodystrophy N25.0 and Secondary hyperparathyroidism, not elsewhere classified E21.1 Assessments Encounter Date Diagnosis (ICD Code) Assessment Notes Treatment Notes Treatment Clinical Notes Section Notes 10/04/2024 Chronic kidney disease, stage 3 unspecified (ICD-10 - N18.30) 10/04/2024 Essential (primary) hypertension (ICD-10 - I10) 10/04/2024 Type 2 diabetes mellitus with hyperglycemia (ICD-10 - E11.65) 10/04/2024 Renal osteodystrophy (ICD-10 - N25.0) 10/04/2024 Secondary hyperparathyroidism , not elsewhere classified (ICD-10 - E21.1) Plan Of Treatment Next Appt Details Provider Name:Jorge A Guevara , 07/25/2025 12:30:00 PM, [address]43 [facility], [facility] [address], [place], [address], Progress Notes * JOCELYN SUN: 2 (65 yo M)Acc No.[id number]:10/04/2024 Progress Notes Patient: AIRAM GREEN Provider: Ana Maria SO MD, Zenaida.Filiberto.C.P, F.A.S.N. :1960 A ge:64 Y S ex:Male Date:10/04/2024 Address:[address] [place] [address] Subjective: * Chief Complaints: * * Medical History: * Medications: T aking Losartan Potassium 50 MG Tablet TAKE 1 TABLET BY MOUTH EVERY DAY , Taking Ergocalciferol 1.25 MG (25390 UT) Capsule 1 capsule Orally Once a week , Taking Losartan Potassium 100 MG Tablet TAKE 1 TABLET BY MOUTH EVERY DAY Objective: * Vitals: Assessment: * Assessment: 1. C hronic kidney disease, stage 3 unspecified - N18.30 2 . E ssential (primary) hypertension - I10 3 . T ype 2 diabetes mellitus with hyperglycemia - E11.65 4 . R enal osteodystrophy - N25.0 5 . S econdary hyperparathyroidism, not elsewhere classified - E21.1 Plan: * Treatment: * Billing Information: * Visit Code: 26455 Office Visit, Est Pt., Level 4. * Procedure Codes: * Electronic signature of Delma Guevara MD on 07/07/2025 at 01:10 PM CDT Sign off status: Pending * Provider: Ana Maria SO MD, F.Filiberto.C.P, F.A.S.N. Date: 12/05/2023 Generated for Printing/Faxing/eTransmitting on: 0 07/07/2025 01:10 PM CDT
--- OUTSIDE RECORDS SUMMARY | 2025-01-03 07:15 | XMS_ITS ---
Author Organization [facility] Office Address 1400 [facility] 61 [facility] [address] [place] [address] Care Team Providers Care Separator Operator Name Role Phone Jorge A Guevara Unavailable [phone] Problems Problem Type SNOMED Code ICD Code Onset Dates Problem Status W/U Status Risk Notes Problem Information temporarily unavailable Secondary hyperparathyroidism of renal origin (N25.81) Active confirmed Problem Information temporarily unavailable Glycosuria (R81) Active confirmed Encounters Encounter Location Date Provider Diagnosis [place] [facility] [address] [facility] 15 [place] [address] 01/03/2025 Jorge A Guevara Chronic kidney disea se, stage 3 unspecified N18.30 ; Essential (primary) hypertension I10 ; Type 2 diabetes mellitus with hyperglycemia E11.65 ; Renal osteodystrophy N25.0 ; Secondary hyperparathyroidism, not elsewhere classified E21.1 ; Secondary hyperparathyroidism of renal origin N25.81 and Glycosuria R81 Assessments Encounter Date Diagnosis (ICD Code) Assessment Notes Treatment Notes Treatment Clinical Notes Section Notes 01/03/2025 Chronic kidney disea se, stage 3 unspecified (ICD-10 - N18.30) 01/03/2025 Essential (primary) hypertension (ICD-10 - I10) 01/03/2025 Type 2 diabetes mellitus with hyperglycemia (ICD-10 - E11.65) 01/03/2025 Renal osteodystrophy (ICD-10 - N25.0) 01/03/2025 Secondary hyperparathyroidism, not elsewhere classified (ICD-10 - E21.1) 01/03/2025 Secondary hyperparathyroidism of renal origin (ICD-10 - N25.81) 01/03/2025 Glycosuria (ICD-10 - R81) Plan Of Treatment Next Appt Details Provider Name:Jorge A Guevara , 07/25/2025 12:30:00 PM, 2043 [facility], [facility] [address], [place], [address], Progress Notes * AIRAM SUNDOB: 2 (65 yo M)Acc No.[id number]:01/03/2025 Progress Notes Patient: AIRAM GREEN Provider: Ana Maria SO MD, Zenaida.Filiberto.Benjamin.P, F.A.S.N. :1960 A ge:64 Y S ex:Male Date:01/03/2025 Address:[address] [place] [address] Subjective: * Chief Complaints: * * Medical History: Objective: * Vitals: Assessment: * Assessment: 1. C hronic kidney disease, stage 3 unspecified - N18.30 (Primary) 2 . E ssential (primary) hypertension - I10 3 . T ype 2 diabetes mellitus with hyperglycemia - E11.65 4 . R enal osteodystrophy - N25.0 5 . S econdary hyperparathyroidism, not elsewhere classified - E21.1 6 . S econdary hyperparathyroidism of renal origin - N25.81 7 . G lycosuria - R81 Plan: * Treatment: * Billing Information: * Visit Code: 59859 Office Visit, Est Pt., Level 4. * Procedure Codes: * Electronic signature of Delma Guevara MD on 07/07/2025 at 01:09 PM CDT Sign off status: Pending * Provider: Ana Maria SO MD, Zenaida.Filiberto.C.P, F.A.S.N. Date: 0 01/03/2025 Generated for Printing/Faxing/eTransmitting on: 0 07/07/2025 01:09 PM CDT
--- OUTSIDE RECORDS SUMMARY | 2025-04-11 07:30 | XMS_ITS ---
Author Organization [facility] Office Address 1400 [facility] [address] [facility] [address] [place] [address] Care Team Providers Care Silver Spray Worker Name Role Phone Jorge A Guevara Unavailable [phone] Problems Problem Type SNOMED Code ICD Code Onset Dates Problem Status W/U Status Risk Notes Problem Chronic kidney disease stage 3A (disorder) (111929728) Chronic kidney disease, stage 3a (N18.31) Active confirmed Encounters Encounter Location Date Provider Diagnosis [facility] 2043 [facility] 15 [place] [address] 04/11/2025 Jorge A Guevara Essential (primary) hypertension I10 ; Chronic kidney disease, stage 3a N18.31 ; Type 2 diabetes mellitus with hyperglycemia E11.65 ; Renal osteodystrophy N25.0 ; Secondary hyperparathyroidism, not elsewhere classified E21.1 ; Secondary hyperparathyroidism of renal origin N25.81 and Glycosuria R81 Assessments Encounter Date Diagnosis (ICD Code) Assessment Notes Treatment Notes Treatment Clinical Notes Section Notes 04/11/2025 Essential (primary) hypertension (ICD-10 - I10) 04/11/2025 Chronic kidney disea se, stage 3a (ICD-10 - N18.31) 04/11/2025 Type 2 diabetes mellitus with hyperglycemia (ICD-10 - E11.65) 04/11/2025 Renal osteodystrophy (ICD-10 - N25.0) 04/11/2025 Secondary hyperparathyroidism, not elsewhere classified (ICD-10 - E21.1) 04/11/2025 Secondary hyperparathyroidism of renal origin (ICD-10 - N25.81) 04/11/2025 Glycosuria (ICD-10 - R81) Plan Of Treatment Next Appt Details Provider Name:Jorge A Guevara , 07/25/2025 12:30:00 PM, 2043 [facility], [facility] 15, [place], [address], Progress Notes * AIRAM SUNDOB: 2 (65 yo M)Acc No.[id number]:04/11/2025 Progress Notes Patient: AIRAM GREEN Provider: Ana Maria SO MD, F.Filiberto.C.P, F.A.S.N. :1960 A ge:65 Y S ex:Male Date:04/11/2025 Address:[address] [place] [address] Subjective: * Chief Complaints: * * Medical History: Objective: * Vitals: Assessment: * Assessment: 1. C hronic kidney disease, stage 3a - N18.31 (Primary) 2 . E ssential (primary) hypertension - I10 3 . T ype 2 diabetes mellitus with hyperglycemia - E11.65 4 . R enal osteodystrophy - N25.0 5 . S econdary hyperparathyroidism, not elsewhere classified - E21.1 6 . S econdary hyperparathyroidism of renal origin - N25.81 7 . G lycosuria - R81 Plan: * Treatment: * Billing Information: * Visit Code: 05761 Office Visit, Est Pt., Level 4. * Procedure Codes: * Electronic signature of Delma Guevara MD on 07/07/2025 at 01:09 PM CDT Sign off status: Pending * Provider: Ana Maria SO MD, F.Filiberto.C.P, F.A.S.N. Date: 04/11/2025 Generated for Printing/Faxing/eTransmitting on: 0 07/07/2025 01:09 PM CDT
--- OUTSIDE RECORDS SUMMARY | 2025-07-07 13:10 | XMS_ITS | Patient Health Record ---
Author Organization [facility] Office Address [address] [facility] [address] [facility] [address] [place] [address] Care Team Providers Care Antique Repairer Name Role Phone Jorge A Guevara Unavailable [phone] Reason For Referral No Information Medications Medication SIG (Take, Route, Frequency, Duration) Notes Start Date End Date Status Losartan Potassium 100 MG TAKE 1 TABLET BY MOUTH EVERY DAY; Duration: 90 Active Vitamin D (Ergocalciferol) 1.25 MG (23811 UT) TAKE 1 CAPSULE BY MOUTH 1 TIME A WEEK; Duration: 90 Active Losartan Potassium 50 MG TAKE 1 TABLET B Y MOUTH EVERY DAY; Duration: 90 Active Ergocalciferol 1.25 MG (41633 UT) 1 capsule Orally Once a week; Duration: 90 day(s) Active Problems Problem Type SNOMED Code ICD Code Onset Dates Problem Status W/U Status Risk Notes Problem Hyperglycemia due to type 2 diabetes mellitus (157293553057276) Type 2 diabetes mellitus with hyperglycemia (E11.65) Active confirmed Problem Secondary hyperparathyroidism (08650908) Secondary hyperparathyroidism, not elsewhere classified (E21.1) Active confirmed Problem Essential hypertension (97992092) Essential (primary) hypertension (I10) Active confirmed Problem Renal osteodystrophy (85724356) Renal osteodystrophy (N25.0) Active confirmed Problem Secondary hyperparathyroidism of renal origin (67987846) Secondary hyperparathyroidism of renal origin (N25.81) Active confirmed Problem Glycosuria (68592263) Glycosuria (R81) Active c onfirmed Problem Chronic kidney disease stage 3A (disorder) (893512002) Chronic kidney disease, stage 3a (N18.31) Active confirmed Encounters Encounter Location Date Provider Diagnosis [place] [facility] [address] [facility] [address] [place] [address] 07/12/2024 Jorge A Guevara Chronic kidney disea se, stage 2 (mild) N18.2 ; Essential (primary) hypertension I10 ; Type 2 diabetes mellitus with hyperglycemia E11.65 ; Renal osteodystrophy N25.0 and Secondary hyperparathyroidism, not elsewhere classified E21.1 [facility] [address] [place] [address] 10/04/2024 Jorge A Guevara Chronic kidney disea se, stage 3 unspecified N18.30 ; Essential (primary) hypertension I10 ; Type 2 diabetes mellitus with hyperglycemia E11.65 ; Renal osteodystrophy N25.0 and Secondary hyperparathyroidism, not elsewhere classified E21.1 [facility] [address] [place] [address] 01/03/2025 Jorge A Guevara Chronic kidney disea se, stage 3 unspecified N18.30 ; Essential (primary) hypertension I10 ; Type 2 diabetes mellitus with hyperglycemia E11.65 ; Renal osteodystrophy N25.0 ; Secondary hyperparathyroidism, not elsewhere classified E21.1 ; Secondary hyperparathyroidism of renal origin N25.81 and Glycosuria R81 [facility] [address] [place] [address] 04/11/2025 Jorge A Guevara Essential (primary) hypertension I10 ; Chronic kidney disease, stage 3a N18.31 ; Type 2 diabetes mellitus with hyperglycemia E11.65 ; Renal osteodystrophy N25.0 ; Secondary hyperparathyroidism, not elsewhere classified E21.1 ; Secondary hyperparathyroidism of renal origin N25.81 and Glycosuria R81 Assessments Encounter Date Diagnosis (ICD Code) Assessment Notes Treatment Notes Treatment Clinical Notes Section Notes 07/12/2024 Chronic kidney disea se, stage 2 (mild) (ICD-10 - N18.2) 10/04/2024 Chronic kidney disea se, stage 3 unspecified (ICD-10 - N18.30) 04/11/2025 Essential (primary) hypertension (ICD-10 - I10) 01/03/2025 Chronic kidney disea se, stage 3 unspecified (ICD-10 - N18.30) 04/11/2025 Chronic kidney disea se, stage 3a (ICD-10 - N18.31) 04/11/2025 Type 2 diabetes mellitus with hyperglycemia (ICD-10 - E11.65) 10/04/2024 Essential (primary) hypertension (ICD-10 - I10) 01/03/2025 Essential (primary) hypertension (ICD-10 - I10) 07/12/2024 Essential (primary) hypertension (ICD-10 - I10) 07/12/2024 Type 2 diabetes mellitus with hyperglycemia (ICD-10 - E11.65) 10/04/2024 Type 2 diabetes mellitus with hyperglycemia (ICD-10 - E11.65) 01/03/2025 Type 2 diabetes mellitus with hyperglycemia (ICD-10 - E11.65) 04/11/2025 Renal osteodystrophy (ICD-10 - N25.0) 04/11/2025 Secondary hyperparathyroidism, not elsewhere classified (ICD-10 - E21.1) 10/04/2024 Renal osteodystrophy (ICD-10 - N25.0) 01/03/2025 Renal osteodystrophy (ICD-10 - N25.0) 07/12/2024 Renal osteodystrophy (ICD-10 - N25.0) 10/04/2024 Secondary hyperparathyroidism, not elsewhere classified (ICD-10 - E21.1) 07/12/2024 Secondary hyperparathyroidism, not elsewhere classified (ICD-10 - E21.1) 01/03/2025 Secondary hyperparathyroidism, not elsewhere classified (ICD-10 - E21.1) 04/11/2025 Secondary hyperparathyroidism of renal origin (ICD-10 - N25.81) 04/11/2025 Glycosuria (ICD-10 - R81) 01/03/2025 Secondary hyperparathyroidism of renal origin (ICD-10 - N25.81) 01/03/2025 Glycosuria (ICD-10 - R81) Plan Of Treatment Next Appt Details Provider Name:Jorge A Guevara , 07/25/2025 12:30:00 PM, [address], [facility] [address], [place], [address],
--- NOTE | 2025-07-07 14:00 | NEURO_ITS ---
Impression: Diabetic of long duration complains of numbness and hand weakness. ? 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 ? # Needle/ EMG exam very abnormal. Nerve Conduction Studies ?Stim Site NR Peak (ms) P-T Amp (?V) Site1 Site2 Delta-P (ms) Dist (cm) Tyler (m/s) Right Median Anti Sensory (2-3nd Digit) Wrist ? 6.0 3.3 Wrist 2-3nd Digit 6.0 14.0 23 Wrist ? 6.0 3.8 Wrist 2-3nd Digit 6.0 14.0 23 Right Radial Anti Sensory (Base 1st Digit)??? NO RESPONSE Wrist 3.0 4 Wrist Base 1st Digit 0.0 Right Ulnar Anti Sensory (5th Digit)??? NO RESPONSE Wrist NR Wrist 5th Digit 14.0 ?Stim Site NR Onset (ms) O-P Amp (mV) Site1 Site2 Delta-0 (ms) Dist (cm) Tyler (m/s) Right Median Motor (Abd Poll Brev) Wrist ? 4.8 0.8 Elbow Wrist 7.5 31.0 41 Elbow ? 12.3 0.4 Right Ulnar Motor (Abd Dig Minimi)??? NO RESPONSE Wrist ? 2.1 1.6 A Elbow Wrist 11.7 0.0 A Elbow ? 13.8 0.0 F Wave Studies ?NR F-Lat (ms) L-R F-Lat (ms) Right Median (Mrkrs) (Abd Poll Brev) ? 30.58 Right Ulnar (Mrkrs) (Abd Dig Min)??? DISPERSED RESPONSE NR Electromyography ?Side Muscle Nerve Root Ins Act Fibs Amp Dur Recrt Comment Right 1stDorInt Ulnar C8-T1 Nml Nml Decr >12ms +4 Right Ext Indicis Radial (Post Int) C7-8 Nml Nml Nml Nml +2 Right Ext Digitorum Radial (Post Int) C7-8 Nml Nml Nml Nml +2 Right BrachioRad Radial C5-6 Nml Nml Nml Nml +2 Right PronatorTeres Median C6-7 Nml Nml Nml Nml +2 Right Abd Poll Brev Median C8-T1 Nml Nml Decr >12ms +4 Right ABD Dig Min Ulnar C8-T1 Nml Nml Decr >12ms +4 Right FlexPolLong Median (Ant Int) C7-8 Nml Nml Nml Nml Nml Right Abd Poll Long Radial (Post Int) C7-8 Nml Nml Nml Nml Nml
== END 2025-07-07 13:03 | disposition home or self-care (01) ==
LOC: ANHNEURO 13:04
PROVIDERS: PCP Internal Medicine; Visit Provider Internal Medicine
DX: M25.521 Pain in right elbow (principal); G62.9 Polyneuropathy, unspecified
CPT/HCPCS: 95886; 95909